=== PATIENT | male | born 1990 | race African-American/Black ===

== ENCOUNTER 2020-02-01 15:18 | Emergency (ER) | payer SELFPAY ==
[~2020-02-01] VITALS: Ht 177.8 cm; Wt 81.5 kg
[2020-02-01] MEDS ORDERED: IBUPROFEN 600MG TABLET PO STA (15:37)
[2020-02-01] MEDS ORDERED: BACITRACIN ZINC OINT UDPKT TOP ONE (15:45)
[2020-02-01] MEDS ORDERED: LIDOCAINE 1%/EPI 1:100,000 10 ML VIAL IJ ONE (15:45)
[2020-02-01] MEDS ORDERED: LIDOCAINE HCL/EPINEPHRINE 1%-EPI 1:100,000 20 ML VIAL INFIL SCH (16:00)
[2020-02-01 16:17] VITALS: BP 118/58
== END 2020-02-01 17:53 | disposition home or self-care (01) ==
LOC: ER 15:18
DX: S61.421A Laceration with foreign body of right hand, initial encounter (principal); X58.XXXA Exposure to other specified factors, initial encounter; Y93.9 Activity, unspecified; Y92.69 Other specified industrial and construction area as the place of occurrence of the external cause; Y99.9 Unspecified external cause status
CPT/HCPCS: 12001; 73130; 99283; J3490

== ENCOUNTER 2020-02-03 09:21 | Emergency (ER) | payer SELFPAY ==
[~2020-02-03] VITALS: Ht 177.8 cm; Wt 80.0 kg
[2020-02-03 09:39] VITALS: BP 139/81
== END 2020-02-03 10:40 | disposition home or self-care (01) ==
LOC: ER 09:48
DX: Z48.00 Encounter for change or removal of nonsurgical wound dressing (principal)
CPT/HCPCS: 99281